=== PATIENT | male | born 1960 | race Caucasian/White ===

== ENCOUNTER → 2017-10-03 | Outpatient (CLI) | payer OTHER, MEDICAID ==
[~2017-10-03] VITALS: Ht 180.3 cm; Wt 91.0 kg
[~2017-10-03] MED LIST: ASPI81 PO; ATOR40TA28 PO; CARV10CR PO; CYAN1TAB44 PO; LOSA25TA21 PO; RANO500T3 PO; TICA60TA PO; UBID100C10 PO; VIT1TABL83 PO; VITAD1000 PO; [UNRECOGNIZED DRUG - REMARK]
[2017-10-03 09:52] VITALS: BP 106/71
== END | disposition home or self-care (01) ==
LOC: SRCNTR 09:15
PROVIDERS: ATTEND Internal Medicine Cardiovascular Disease
DX: Z48.812 Encounter for surgical aftercare following surgery on the circulatory system (principal)
CPT/HCPCS: G0463

== ENCOUNTER → 2018-08-16 | Outpatient (CLI) | payer OTHER ==
[~2018-08-16] MED LIST changes: -LOSA25TA21 PO; +LOSA25TA41 PO
== END | disposition home or self-care (01) ==
LOC: RADMN 08:29
PROVIDERS: ATTEND Internal Medicine Cardiovascular Disease
DX: I42.5 Other restrictive cardiomyopathy (principal); F32.9 Major depressive disorder, single episode, unspecified
CPT/HCPCS: 78472; A9560